=== PATIENT | female | born 1990 | race African-American/Black ===

== ENCOUNTER 2023-05-21 15:08 | Outpatient (AMB) | payer OTHER, SELFPAY ==
--- NOTE | 2023-05-21 15:24 | A.OFFVISCC_ITS ---
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 Alcohol -problematic at age 20-21 -drinking daily one bottle of wine or isabel lf bottle of tequilla -starting drinking daily summer -started vivitrol in September and drinking d ecreased 1 shot to 2 glasses of wine -history of black outs over the holidays -no history of ATS Purpose of patient's visit is to review possible recovery supports in addition to KENDY Review of Systems Const Reports as per HPI Psych Reports anhedonia Physical Exam Vital Signs: Last Vital Signs Pulse 88 05/21/23 15:25 BP 114/70 05/21/23 15:25 Pulse Ox 98 05/21/23 15:25 Oxygen Delivery Method Room Air 05/21/23 15:25 BMI result Body Mass Index 26.2 Const General: cooperative, healthy appearing and no acute distress Nutritional Appearance: average body habitus Orientation/consciousness: patient oriented x3 Limitations: no limitations Neuro General: patient oriented x3 Psych Appearance: well kempt Speech and movement: Clear speech present Affect: normal affect Attitude: cooperative Thought process: Normal thought process present Thought content: Normal thought content present Insight: Good insight present (Psych) Results AMB 14 Panel Urine Drug Screen Urine Marijuana (THC) Positive Last Edit by Sulema Carpio CMA on 05/21/23 15:29 Urine Cocaine Negative Last Edit by Sulema Carpio CMA on 05/21/23 15:29 Urine Morphine Negative Last Edit by Sulema Carpio CMA on 05/21/23 15:29 Urine Methamphetamine Negative Last Edit by Sulema Carpio CMA on 05/21/23 15:29 Urine Amphetamine Negative Last Edit by Sulema Carpio CMA on 05/21/23 15:2 9 Urine Benzodiazepine Negative Last Edit by Sulema Carpio CMA on 05/21/23 15:29 Urine Barbiturates Negative Last Edit by Sulema Carpio CMA on 05/21/23 15: 29 Urine Methadone Negative Last Edit by Sulema Carpio CMA on 05/21/23 15:29 Urine Buprenorphine Negative Last Edit by Sulema Carpio CMA on 05/21/23 15 :29 Urine Tricyclic Antidepressant Negative Last Edit by Sulema Carpio CMA on 05/21/23 15:29 Urine MDMA Negative Last Edit by Sulema Carpio CMA on 05/21/23 15:29 Urine Oxycodone Negative Last Edit by Sulema Carpio CMA on 05/21/23 15:29 Urine Phencyclidine Negative Last Edit by Sulema Carpio CMA on 05/21/23 15 :29 Urine Propoxyphene Negative Last Edit by Suelma Carpio CMA on 05/21/23 15: 29 Results Reviewed Results Reviewed: Laboratory Last Values POC Urine Buprenorphine Negative 05/21/23 15:27 POC Urine Morphine Negative 05/21/23 15:27 POC Urine Oxycodone Negative 05/21/23 15:27 POC Urine Methadone Negative 05/21/23 15:27 POC Urine Propoxyphene Negative 05/21/23 15:27 POC Urine Barbiturates Negative 05/21/23 15:27 POC U Tricyclic Antidpr Negative 05/21/23 15:27 POC Urine PCP Negative 05/21/23 15:27 POC Ur Amphetamines Negative 05/21/23 15:27 POC Ur Methamphetamine Negative 05/21/23 15:27 POC Urine MDMA Negative 05/21/23 15:27 POC Ur Benzodiazepine Negative 05/21/23 15:27 POC Urine Cocaine Negative 05/21/23 15:27 POC Ur Marijuana (THC) Positive 05/21/23 15:27 Assessment & Plan Assessment & Plan (1) Alcohol use disorder, moderate, dependence: Code(s): F10.20 - Alcohol dependence, uncomplicated Plan: * resources reviewed * risk reduction discussion and resources provided * encouraged to follow up should she have any additional questions Orders: Orders AMB 14 Panel Urine Drug Screen 05/21/23 Z51.81 - Encounter for therapeutic drug level monitoring Coding Level of Care Code Tele New Pt Level 4 (00907) Diagnoses Alcohol use disorder, moderate, dependence F10.20
[2023-05-21 15:25] VITALS: BP 114/70; PULSE 88; O2SAT 98; BMI 26.2
== END 2023-05-21 16:24 | disposition home or self-care (01) ==
PROVIDERS: PCP Internal Medicine; Visit Provider Nurse Practitioner Family
DX: F10.20 Alcohol dependence, uncomplicated (principal)
CPT/HCPCS: 99204

== ENCOUNTER → 2023-05-21 15:08 | Outpatient (BNVA) | payer OTHER, SELFPAY | PROVIDERS: PCP Internal Medicine; Visit Provider Nurse Practitioner Family | DX: F10.20 Alcohol dependence, uncomplicated (principal) | CPT/HCPCS: 80305 ==